=== PATIENT | male | born 1950 | race Asian ===

== ENCOUNTER 2020-07-09 08:00 | Outpatient (CLI) | payer MEDICARE, OTHER ==
[2020-07-09] MEDS ORDERED: ALLO300T PO (14:38)
[2020-07-09] MEDS ORDERED: B CO1TAB14 PO (14:38)
[2020-07-09] MEDS ORDERED: LINA5TAB PO (14:38)
[2020-07-09] MEDS ORDERED: ATOR20TA37 PO (14:38)
[2020-07-09] MEDS ORDERED: MELA3TAB31 PO (14:38)
[2020-07-09] MEDS ORDERED: CHOL10003 PO (14:38)
[2020-07-09] MEDS ORDERED: CENTRUM MVT PO (14:38)
[2020-07-09] MEDS ORDERED: INSU100I13 SC (14:38)
[2020-07-09] MEDS ORDERED: LUTE10TA2 PO (14:38)
[2020-07-09] MEDS ORDERED: ASPI81TA45 PO (14:38)
[2020-07-09] MEDS ORDERED: LATA7.5D EACHEYE (14:38)
[2020-07-09] MEDS ORDERED: INSU100I11 SC (14:38)
== END 2020-07-09 23:59 | disposition home or self-care (01) ==
LOC: STAR 08:00 → EDBD 14:30 → STAR 23:59
PROVIDERS: ATTEND Surgery
DX: Z01.812 Encounter for preprocedural laboratory examination (principal); Z20.828 Contact with and (suspected) exposure to other viral communicable diseases; J98.11 Atelectasis; N18.6 End stage renal disease; Z99.2 Dependence on renal dialysis
CPT/HCPCS: 36415; 71046; 80053; 85025; 85610; 85730; 87635; 93005

== ENCOUNTER → 2020-07-18 | Outpatient (CLI) | payer MEDICARE, OTHER ==
[~2020-07-18] MED LIST: ALLO300T PO; ASPI81TA45 PO; ATOR20TA37 PO; B CO1TAB14 PO; CENTRUM MVT PO; CHOL10003 PO; INSU100I11 SC; INSU100I13 SC; LATA7.5D EACHEYE; LINA5TAB PO; LUTE10TA2 PO; MELA3TAB31 PO
== END | disposition home or self-care (01) ==
LOC: STAR 13:33
PROVIDERS: ATTEND Anesthesiology
DX: Z01.812 Encounter for preprocedural laboratory examination (principal); Z20.828 Contact with and (suspected) exposure to other viral communicable diseases
CPT/HCPCS: 36415; 87635

== ENCOUNTER 2020-07-23 05:37 | Day surgery (SDC) | payer MEDICARE, OTHER ==
[~2020-07-23] VITALS: Ht 175.3 cm; Wt 84.5 kg
[2020-07-23] MEDS ORDERED: SODIUM CHLORIDE 0.9% 1,000 ML IV ONE (06:07)
[2020-07-23] MEDS ORDERED: CHLORHEXIDINE 15 ML UDC MM STA (06:07)
[2020-07-23 06:21] VITALS: BP 156/89
[2020-07-23] MEDS ORDERED: EPINEPHRINE 1 MG/ML, 1ML ONE (06:51)
[2020-07-23] MEDS ORDERED: HEPARIN 1,000 UNITS/ML, 10ML ONE (06:51)
[2020-07-23] MEDS ORDERED: BUPIVACAINE/PF 0.5% ONE (06:51)
[2020-07-23] MEDS ORDERED: PROTAMINE SULFATE 10 MG/ML, 5ML ONE (06:51)
[2020-07-23] MEDS ORDERED: MIDAZOLAM 1 MG/ML, 2ML ONE (07:25)
[2020-07-23] MEDS ORDERED: DEXAMETHASONE 4 MG/ML, 1ML ONE (07:25)
[2020-07-23] MEDS ORDERED: FENTANYL PF 250 MCG/5ML ONE (07:25)
[2020-07-23] MEDS ORDERED: SUCCINYLCHOLINE 20 MG/ML, 10ML ONE (07:39)
[2020-07-23] MEDS ORDERED: EPHEDRINE 50 MG/ML, 1ML ONE (07:39)
[2020-07-23] MEDS ORDERED: CEFAZOLIN 1,000 MG ONE ×2 (07:39→07:47)
[2020-07-23] MEDS ORDERED: ROCURONIUM 10MG/ML,5ML ONE (07:39)
[2020-07-23] MEDS ORDERED: PROPOFOL 10 MG/ML, 20ML ONE (07:48)
[2020-07-23] MEDS ORDERED: hydrALAzine 20 MG/ML, 1ML IV PRN (08:00)
[2020-07-23] MEDS ORDERED: MEPERIDINE/PF 25MG/0.5ML IVPush PRN (08:00)
[2020-07-23] MEDS ORDERED: PROMETHAZINE 25 MG/ML, 1ML IVPush PRN (08:00)
[2020-07-23] MEDS ORDERED: DIPHENHYDRAMINE 50 MG/ML, 1ML IVPush PRN (08:00)
[2020-07-23] MEDS ORDERED: MIDAZOLAM 1 MG/ML, 2ML IV PRN (08:00)
[2020-07-23] MEDS ORDERED: OXYcodone 5 MG/5 ML ORAL.SOL UDC PO PRN (08:00)
[2020-07-23] MEDS ORDERED: DIAZEPAM 5 MG/ML, 2ML IVPush PRN (08:00)
[2020-07-23] MEDS ORDERED: HYDROmorphone 1 MG/ML, 1ML INJ IVPush PRN (08:00)
[2020-07-23] MEDS ORDERED: ACETAMINOPHEN 325 MG TABLET PO PRN (08:00)
[2020-07-23] MEDS ORDERED: ALBUTEROL SULFATE 2.5 MG/3 ML NPPB PRN (08:00)
[2020-07-23] MEDS ORDERED: EPHEDRINE 50 MG/ML, 1ML IVPush PRN (08:00)
[2020-07-23] MEDS ORDERED: FENTANYL PF 100 MCG/2ML IV PRN (08:00)
[2020-07-23] MEDS ORDERED: ONDANSETRON 2MG/ML, 2ML IVPush PRN (08:00)
[2020-07-23] MEDS ORDERED: PROMETHAZINE 12.5 MG SUPP PR PRN (08:00)
[2020-07-23] MEDS ORDERED: LABETALOL 5MG/ML, 20ML IV PRN (08:00)
[2020-07-23] MEDS ORDERED: ONDANSETRON 2MG/ML, 2ML ONE (09:06)
== END 2020-07-23 11:15 | disposition home or self-care (01) ==
LOC: OUT 05:37
PROVIDERS: ATTEND Surgery
DX: E11.22 Type 2 diabetes mellitus with diabetic chronic kidney disease (principal); N18.6 End stage renal disease; E78.5 Hyperlipidemia, unspecified; F17.210 Nicotine dependence, cigarettes, uncomplicated; Z79.4 Long term (current) use of insulin; Z79.82 Long term (current) use of aspirin; Z79.899 Other long term (current) drug therapy; Z99.2 Dependence on renal dialysis; Z88.0 Allergy status to penicillin; Z91.013 Allergy to seafood; Z89.511 Acquired absence of right leg below knee; Z82.5 Family history of asthma and other chronic lower respiratory diseases; Z83.3 Family history of diabetes mellitus; Z80.0 Family history of malignant neoplasm of digestive organs; Z80.1 Family history of malignant neoplasm of trachea, bronchus and lung; Z84.1 Family history of disorders of kidney and ureter
CPT/HCPCS: 36819; 82962; J0171; J0330; J0690; J1100; J1644; J2250; J2405; J2704; J3010; J7030; J2720

== ENCOUNTER 2020-09-07 05:28 | Observation (INO) | payer MEDICARE, OTHER ==
[~2020-09-07] VITALS: Ht 175.3 cm; Wt 89.0 kg
[2020-09-07] MEDS ORDERED: CHLORHEXIDINE 15 ML UDC MM STA (06:03)
[2020-09-07 06:05] VITALS: BP 130/71
[2020-09-07] MEDS ORDERED: LACTATED RINGERS 1,000 ML IV SCH (06:30)
[2020-09-07] MEDS ORDERED: HEPARIN 1,000 UNITS/ML, 30ML ONE (06:39)
[2020-09-07] MEDS ORDERED: PAPAVERINE 30 MG/ML, 2ML ONE (06:39)
[2020-09-07] MEDS ORDERED: BUPIVACAINE/PF-EPI 0.5% 1:200K ONE (06:39)
[2020-09-07] MEDS ORDERED: DEXAMETHASONE 4 MG/ML, 5ML ONE (07:02)
[2020-09-07] MEDS ORDERED: ROCURONIUM 10MG/ML,5ML ONE (07:02)
[2020-09-07] MEDS ORDERED: GLYCOPYRROLATE 0.2MG/1ML, 5ML ONE ×2 (07:02→07:03)
[2020-09-07] MEDS ORDERED: LIDOCAINE-MPF 2% ,5ML ONE (07:02)
[2020-09-07] MEDS ORDERED: PROPOFOL 10 MG/ML, 20ML ONE ×2 (07:02→07:03)
[2020-09-07] MEDS ORDERED: FENTANYL PF 100 MCG/2ML ONE (07:02)
[2020-09-07] MEDS ORDERED: MIDAZOLAM 1 MG/ML, 2ML ONE (07:02)
[2020-09-07] MEDS ORDERED: DEXAMETHASONE 4 MG/ML, 1ML ONE (07:03)
[2020-09-07] MEDS ORDERED: ROCURONIUM 10 MG/ML,10ML ONE (07:03)
[2020-09-07] MEDS ORDERED: EPHEDRINE 50 MG/ML, 1ML ONE (07:03)
[2020-09-07 07:15] LABS: ALBUMIN 2.6 g/dL (3.4-5.0); ANION GAP 6 mmol/L (5-15); CHLORIDE 107 mmol/L (98-107)
[2020-09-07 07:21] LABS: ALANINE AMINOTRANSFERASE 21 U/L (12-78); ALKALINE PHOSPHATASE 88 U/L (45-117); BILIRUBIN,TOTAL 0.3 mg/dL (0.2-1.0); CREATININE 5.53 mg/dL (0.7-1.3)
[2020-09-07] MEDS ORDERED: DOXYCYCLINE 100 MG VIAL ONE (07:22)
[2020-09-07] MEDS ORDERED: DIAZEPAM 5 MG/ML, 2ML IVPush PRN (08:30)
[2020-09-07] MEDS ORDERED: LORazepam 2 MG/ML, 1ML IVPush PRN (08:30)
[2020-09-07] MEDS ORDERED: HALOPERIDOL 5 MG/ML IV PRN (08:30)
[2020-09-07] MEDS ORDERED: METOCLOPRAMIDE 5 MG/ML, 2ML IVPush PRN (08:30)
[2020-09-07] MEDS ORDERED: ACETAMINOPHEN 325 MG TABLET PO PRN (08:30)
[2020-09-07] MEDS ORDERED: MIDAZOLAM 1 MG/ML, 2ML IV PRN (08:30)
[2020-09-07] MEDS ORDERED: EPHEDRINE 50 MG/ML, 1ML IM PRN (08:30)
[2020-09-07] MEDS ORDERED: EPHEDRINE 50 MG/ML, 1ML IVPush PRN (08:30)
[2020-09-07] MEDS ORDERED: OXYcodone 5 MG/5 ML ORAL.SOL UDC PO PRN (08:30)
[2020-09-07] MEDS ORDERED: FENTANYL PF 100 MCG/2ML IV PRN (08:30)
[2020-09-07] MEDS ORDERED: HYDROcodone/APAP 7.5-325MG/15ML UDC PO PRN (08:30)
[2020-09-07] MEDS ORDERED: ONDANSETRON 2MG/ML, 2ML IVPush PRN ×2 (08:30→12:30)
[2020-09-07] MEDS ORDERED: METHOCARBAMOL 1,000 MG in DEXTROSE 5% 100 ML IV PRN (08:30)
[2020-09-07] MEDS ORDERED: DIPHENHYDRAMINE 50 MG/ML, 1ML IVPush PRN (08:30)
[2020-09-07] MEDS ORDERED: ALBUTEROL SULFATE 2.5 MG/3 ML NPPB PRN (08:30)
[2020-09-07] MEDS ORDERED: hydrALAzine 20 MG/ML, 1ML IV PRN (08:30)
[2020-09-07] MEDS ORDERED: KETOROLAC 30 MG/1 ML IVPush PRN (08:30)
[2020-09-07] MEDS ORDERED: HYDROmorphone 1 MG/ML, 1ML INJ IVPush PRN (08:30)
[2020-09-07] MEDS ORDERED: LABETALOL 5MG/ML, 20ML ONE (10:34)
[2020-09-07] MEDS: LABETALOL 5MG/ML, 20ML IV PRN ×2 (10:36→10:52)
[2020-09-07] MEDS ORDERED: CEFAZOLIN 1,000 MG ONE (11:50)
[2020-09-07] MEDS ORDERED: MELATONIN 3 MG TABLET PO PRN (12:30)
[2020-09-07] MEDS ORDERED: OXYcodone/APAP 5/325MG TABLET PO PRN (12:30)
[2020-09-07] MEDS ORDERED: [UNRECOGNIZED DRUG - REMARK] MC SCH (12:30)
[2020-09-07] MEDS ORDERED: [UNRECOGNIZED DRUG - REMARK] MC SCH (12:30)
[2020-09-07] MEDS: INSULIN LISPRO 100 UNITS/ML, PEN SQ-INSULIN SCH ×2 (15:34→21:08)
[2020-09-07 20:24] VITALS: BP 136/83
[2020-09-07] MEDS ORDERED: INSULIN GLARGINE 100 UNITS/ML, PEN SQ-INSULIN SCH (21:00)
[2020-09-07] MEDS ORDERED: LATANOPROST OPHTH 0.005%, 2.5ML EACHEYE SCH (21:00)
[2020-09-07] MEDS ORDERED: ATORVASTATIN 20 MG TABLET PO SCH (21:00)
[2020-09-08 00:03] VITALS: BP 102/53
[2020-09-08 05:20] VITALS: BP 123/77
[2020-09-08] MEDS ORDERED: HEPARIN 5,000 UNITS/ML, 1ML SQ SCH (06:00)
[2020-09-08] MEDS ORDERED: ASPIRIN 81 MG TABLET EC PO SCH (06:00)
[2020-09-08 07:18] VITALS: BP 128/71
[2020-09-08] MEDS: INSULIN LISPRO 100 UNITS/ML, PEN SQ-INSULIN SCH (08:20)
[2020-09-08] MEDS ORDERED: MULTIVITS,STRESS FORMULA 1 TABLET PO SCH (09:00)
[2020-09-08] MEDS ORDERED: LINAGLIPTIN 5 MG TAB PO SCH (09:00)
[2020-09-08] MEDS ORDERED: CHOLECALCIFEROL 1,000 UNIT TABLET PO SCH (09:00)
[2020-09-08] MEDS ORDERED: ALLOPURINOL 100 MG TABLET PO SCH (09:00)
[2020-09-08] MEDS ORDERED: MULTIVITAMIN 1 TABLET PO SCH (09:00)
[2020-09-08] MEDS ORDERED: LUTEIN 10 MG HOMEMEDPO SCH (09:00)
== END 2020-09-08 09:15 | disposition home or self-care (01) ==
LOC: OUT 05:28 → ORIP 10:18 → 4NE 11:29 → DCLOUNGE 09-08 09:09
PROVIDERS: ADMIT Surgery; ATTEND Surgery
DX: E11.22 Type 2 diabetes mellitus with diabetic chronic kidney disease (principal); N18.6 End stage renal disease; Z20.828 Contact with and (suspected) exposure to other viral communicable diseases; E78.5 Hyperlipidemia, unspecified; M10.9 Gout, unspecified; F17.200 Nicotine dependence, unspecified, uncomplicated; Z99.2 Dependence on renal dialysis; Z88.0 Allergy status to penicillin; Z79.899 Other long term (current) drug therapy
CPT/HCPCS: 36821; 80053; 82962; 96372; G0378; J0690; J1100; J1644; J1815; J2250; J2704; J3010; J3490; U0003; J2440